=== PATIENT | male | born 1940 | race Caucasian/White ===

== ENCOUNTER 2020-03-30 09:00 | Inpatient (IN) | payer MEDICARE, OTHER ==
--- NOTE | 2020-03-30 09:53 | ED ---
General Adult HPI - General Chief complaint: Recheck/Abnormal Lab/Rx Stated complaint: positive covid Time Seen by Provider: 03/30/20 09:00 Source: patient, EMS, RN notes reviewed, old records reviewed Mode of arrival: EMS Limitations: no limitations - History of Present Illness Initial comments: This is an 80-year-old male who presents emergency because he tested positive for COVID. Patient denies any symptoms. EMS also stated that he had no symptoms. Patient denies any headache patient denies numbness or weakness per patient denies chest pain difficulty breathing shortness of breath. Patient denies any abdominal pain patient denies nausea vomiting diarrhea. Patient denies any rashes or lesions. - Related Data Home Medications Medication Instructions Recorded Confirmed Furosemide [Lasix] 40 mg PO DAILY@0700 11/18/13 03/30/20 INSULIN LISPRO (humaLOG) [humaLOG] 8 units SQ DAILY@1700 11/18/13 03/30/20 Magnesium Hydroxide [Milk of 7,200 mg PO DAILY PRN 11/18/13 03/30/20 Magnesia Concentrate] Oxybutynin Chloride [Ditropan XL] 5 mg PO DAILY@0700 11/18/13 03/30/20 lisinopriL [Zestril] 5 mg PO DAILY@0700 11/18/13 03/30/20 Acetaminophen Tab [Tylenol] 650 mg PO Q6H PRN 03/30/20 03/30/20 Apixaban [Eliquis] 2.5 mg PO BID@0700,1700 03/30/20 03/30/20 Docusate [Colace] 100 mg PO DAILY@0700 03/30/20 03/30/20 Fenofibrate [Lofibra] 54 mg PO DAILY@0700 03/30/20 03/30/20 Insulin Glargine,Hum.rec.anlog 30 unit SQ BID@0700,209903/30/20 03/30/20 [Basaglar Kwikpen U-100] Levothyroxine Sodium [Synthroid] 75 mcg PO HS@209903/30/20 03/30/20 Omeprazole [PriLOSEC] 20 mg PO HS@209903/30/20 03/30/20 Potassium Chloride ER [K-Dur 10] 10 meq PO DAILY@0700 03/30/20 03/30/20 Allergies Allergy/AdvReac Type Severity Reaction Status Date / Time No Known Allergies Allergy Verified 03/30/20 09:08 Review of Systems ROS Statement: Those systems with pertinent positive or pertinent negative responses have been documented in the HPI. ROS Other: All systems not noted in ROS Statement are negative. Past Medical History Past Medical History: Cancer, CVA/TIA, Diabetes Mellitus, Deep Vein Thrombosis (DVT), Hyperlipidemia, Myocardial Infarction (GA), Pulmonary Embolus (PE), Skin Disorder, Thyroid Disorder Additional Past Medical History / Comment(s): basal cell carcinoma right arm, left hand, left ear, weakness, anemia, tachycardia, degenerative joint disease, arthritis Last Myocardial Infarction Date:: History of Any Multi-Drug Resistant Organisms: None Reported Additional Past Surgical History / Comment(s): cancer removal from hand Past Anesthesia/Blood Transfusion Reactions: No Reported Reaction Past Psychological History: No Psychological Hx Reported Smoking Status: Never smoker Past Alcohol Use History: None Reported Past Drug Use History: None Reported General Exam - General Exam Comments Initial Comments: GENERAL: Patient is well-developed and well-nourished. Patient is nontoxic and well- hydrated and is in no acute distress. ENT: Neck is soft and supple. No significant lymphadenopathy is noted. Oropharynx is clear. Moist mucous membranes. Neck has full range of motion without eliciting any pain. EYES: The sclera were anicteric and conjunctiva were pink and moist. Extraocular movements were intact and pupils were equal round and reactive to light. Eyelids were unremarkable. PULMONARY: Unlabored respirations. Good breath sounds bilaterally. No audible rales rhonchi or wheezing was noted. CARDIOVASCULAR: There is a regular rate and rhythm without any murmurs gallops or rubs. ABDOMEN: Soft and nontender with normal bowel sounds. SKIN: Skin is clear with no lesions or rashes and otherwise unremarkable. NEUROLOGIC: Patient is alert and oriented 2. Cranial nerves II through XII are grossly intact. Motor and sensory are also intact. Normal speech, volume and content. Symmetrical smile. MUSCULOSKELETAL: Normal extremities with adequate strength and full range of motion. No lower extremity swelling or edema. No calf tenderness. LYMPHATICS: No significant lymphadenopathy is noted PSYCHIATRIC: Normal psychiatric evaluation. Limitations: no limitations Course Vital Signs 03/30/20 03/30/20 03/30/20 09:02 10:30 11:00 Temperature 98.3 F 98.2 F 98.0 F Pulse Rate 88 80 84 Respiratory 18 18 18 Rate Blood Pressure 101/64 104/66 101/64 O2 Sat by Pulse 97 98 97 Oximetry 03/30/20 13:00 Temperature 98.1 F Pulse Rate 78 Respiratory 18 Rate Blood Pressure 118/66 O2 Sat by Pulse 97 Oximetry Medical Decision Making - Medical Decision Making chest x-ray shows no acute abnormality. Patient remained asymptomatic throughout his ED stay After the patient had been discharged for approximately 5 hours it was determi anjali that the patient needed to stay because he had no place to go because of his COVID positive slight admitted the patient after I spoke with Dr. Womack who accepted the patient. Disposition Clinical Impression: COVID-19 Disposition: ADMITTED IP TO THIS HOSP Condition: Good Additional Instructions: Patient should be quarantined until he is cleared by a physician. Is patient prescribed a controlled substance at d/c from ED?: No Referrals: Ben Melara MD [Primary Care Provider] - 1-2 days Time of Disposition: 10:25
--- NOTE | 2020-03-30 09:57 | XR ---
EXAMINATION TYPE: XR chest 1V portable DATE OF EXAM: 03/30/2020 COMPARISON: Chest x-ray 11/18/2013 HISTORY: Shortness of breath, code positive TECHNIQUE: Single frontal view of the chest is obtained. FINDINGS: Patient is rotated. Patchy basilar density is present. Some lucency beneath the heart may be related to bowel similar to prior exam. There is no evident pneumothorax or pleural effusion. Lung volumes are low. Heart size is stable. The aorta is dense and somewhat prominent. IMPRESSION: Expiratory rotated exam. Probable basilar atelectasis, correlate to exclude pneumonia. F indings of lucency beneath the heart are indeterminate as described. Difficult to exclude aortic aneu rysm.
[2020-03-30] MEDS ORDERED: SODIUM CHLORIDE 0.9% 1,000 ML IV ONE (15:07)
[2020-03-30] MEDS ORDERED: MAGNESIUM HYDROXIDE 2,400 MG/10 ML CUP PO PRN (17:39)
[2020-03-30] MEDS ORDERED: ACETAMINOPHEN TAB 325 MG TAB PO PRN (17:39)
--- NOTE | 2020-03-30 18:09 | CT ---
EXAMINATION TYPE: CT chest wo con DATE OF EXAM: 03/30/2020 COMPARISON: Same-day radiograph. HISTORY: Cough. CT DLP: 565 mGycm. Automated Exposure Control for Dose Reduction was Utilized. TECHNIQUE: CT scan of the thorax is performed without IV contrast. FINDINGS: LUNGS: There are [id number] patchy and streaky opacities in the bilateral lower lobes and ling tammy. There is trace right pleural effusion. There is no suspicious nodule or pneumothorax. MEDIASTINUM: Lack of IV contrast is noted to limit evaluation for mediastinal and especially hilar ad enopathy. There are no definitive greater than 1 cm hilar or mediastinal lymph nodes. No cardiomega ly or pericardial effusion is seen. Moderate thoracic aorta and coronary atherosclerotic disease. OTHER: No additional significant abnormality is seen. Cholelithiasis noted. IMPRESSION: Small to moderate bibasilar opacities may represent developing infiltrates in the appropr iate clinical setting.
[2020-03-30 19:18] LABS: Basophils # (A) 0.2 k/uL (0-0.2); Basophils % (A) 3 %; Eosinophils # (A) 0.1 k/uL (0-0.7); Eosinophils % (A) 1 %; HGB 15.1 gm/dL (13.0-17.5); Lymphocytes # (A) 2.2 k/uL (1.0-4.8); Lymphocytes % (A) 30 %; MCH 28.9 pg (25.0-35.0); MCHC 32.2 g/dL (31.0-37.0); MCV 89.9 fL (80.0-100.0); Mean Platelet Volume 7.8; Monocytes # (A) 0.5 k/uL (0-1.0); Monocytes % (A) 7 %; Neutrophils # (A) 4.2 k/uL (1.3-7.7); Neutrophils % (A) 58 %; Platelet Count 178 k/uL (150-450); RBC 5.23 m/uL (4.30-5.90); RDW 14.4 % (11.5-15.5); WBC 7.3 k/uL (3.8-10.6)
[2020-03-30 19:35] LABS: ALT 41 U/L (4-49); AST 70 U/L (17-59); African American GFR (CKD) 39 (>60 ml/min/1.73 sqM); Albumin 3.5 g/dL (3.5-5.0); Alkaline Phosphatase 62 U/L (38-126); Anion Gap 11 mmol/L; Blood Urea Nitrogen 43 mg/dL (9-20); C Reactive Protein 61.3 mg/L (<10.0); Calcium 9.1 mg/dL (8.4-10.2); Carbon Dioxide 23 mmol/L (22-30); Chloride 102 mmol/L (98-107); Globulin 3.5 g/dL; Glucose 199 mg/dL (74-99); LDH 637 U/L (313-618); Non-African American GFR(CKD) 33 (>60 ml/min/1.73 sqM); Sodium 136 mmol/L (137-145); Total Bilirubin 0.7 mg/dL (0.2-1.3)
[2020-03-30] MEDS ORDERED: ALPRAZolam 0.25 MG TAB PO PRN (19:59)
[2020-03-30] MEDS ORDERED: HYDROcodone/APAP 5-325MG 1 EACH TAB PO PRN (19:59)
[2020-03-30 20:12] LABS: Potassium 4.5 mmol/L (3.5-5.1)
[2020-03-30 20:18] LABS: Erythrocyte Sedimentation Rate 28 mm/hr (0-15)
[2020-03-30 20:44] LABS: Glucose,Whole Blood 278 mg/dL (75-99)
[2020-03-30] MEDS: LEVOTHYROXINE 75 MCG TAB PO SCH (21:39)
[2020-03-30] MEDS: dexAMETHasone 2 MG TAB PO SCH (21:39)
[2020-03-30] MEDS: PANTOPRAZOLE 40 MG TABLET PO SCH (21:39)
[2020-03-30] MEDS: INSULIN ASPART (NovoLOG) 100 UNIT/ML VIAL SQ SCH (21:40)
[2020-03-30] MEDS: ZINC SULFATE 220 MG CAP PO SCH (21:40)
[2020-03-30] MEDS: INSULIN DETEMIR (LEVEMIR) 100 UNIT/ML SYR SQ SCH (21:40)
--- NOTE | 2020-03-30 22:15 | HP ---
HISTORY AND PHYSICAL DATE OF SERVICE: 03/30/2020 CHIEF COMPLAINTS: COVID positive. HISTORY OF PRESENT ILLNESS: This 80-year-old gentleman, a resident of [facility], being followed by Dr. Ben Melara in the outpatient setting, has history of CVA, TIA, history of diabetes mellitus, DVT, hyperlipidemia, history of myocardial infarction, history of pulmonary embolism, history of hypothyroidism, history of basal cell carcinoma on the right, is barely communicative. The patient was found to be COVID positive in [facility], found among several patients. The patient does not have any cough or chest pain, palpitations. Denies any major symptoms. The patient came to [facility]. Chest x-ray and CT scan showed possible bibasilar infiltrates. The patient is admitted for further evaluation and treatment. There is no history of any fever, rigors. No history of trauma. PAST MEDICAL HISTORY: Diabetes mellitus, CVA, TIA, DVT, hyperlipidemia, myocardial infarction, history of pulmonary embolism. HOME MEDICATIONS: Zestril, K-Dur 10, Ditropan, Prilosec, Milk of Magnesia, Synthroid, Basaglar Kwikpen, Humalog, Lasix, Lofibra, Colace, Eliquis, Tylenol. ALLERGIES: NONE. FAMILY HISTORY: No history of heart disease or strokes in the family. Social history and review of systems could not be taken at length because of the patient's baseline mental status. PHYSICAL EXAMINATION: Pulse is 70, blood pressure 100/60, respiration 18, temperature 98.2, pulse ox 96% on room air. HEENT: Conjunctivae normal. NECK: No jugular venous distention. CARDIOVASCULAR SYSTEM: S1, S2 muffled. RESPIRATORY SYSTEM: Breath sounds diminished at the bases. A few scattered rhonchi. ABDOMEN: Soft, non-tender. LEGS: No edema. No swelling. NERVOUS SYSTEM: Diffusely weak. LYMPHATICS: No lymph node palpable in neck, axillae or groin. SKIN: No ulcer, rash, bleeding. JOINTS: No active deforming arthropathy. LABS: CBC within normal limits. ASSESSMENT: 1. Acute COVID-19 infection with possible bibasilar pneumonia with viral pneumonia. 2. Possible aspiration pneumonia. 3. History of cerebrovascular accident, transient ischemic attack. 4. Diabetes mellitus, type 2. 5. History of deep vein thrombosis. 6. Hyperlipidemia. 7. History of myocardial infarction. 8. History of pulmonary embolism. 9. History of hypothyroidism. 10.History of basal cell carcinoma of the right arm. 11.History of anemia. 12.Obesity with body mass index of 31. RECOMMENDATIONS AND DISCUSSION: In this 80-year-old gentleman who presented with multiple complex medical issues, we will monitor the patient closely, continue the current medications, continue with symptomatic treatment. Will initiate the inflammatory markers such as D-dimer, sedimentation rate, LDH and CRP. Otherwise, we will also initiate dexamethasone and zinc with broad-spectrum IV antibiotics. The patient is already on anticoagulation. I would also recommend pulmonary consultation with Dr. Lyn to evaluate the pneumonia as well as to decide on the application of remdesivir. Overall prognosis is guarded because of multiple complex medical issues. Further recommendations to follow. A copy of this dictation is being forwarded to Dr. Melara, who is the primary physician. MMRIAL / RADHAN: [id number] /
[2020-03-31] MEDS: PIPERACILLIN-TAZOBACTAM 3.375 GM in SODIUM CHLORIDE 0.9% 100 ML IVPB SCH ×2 (00:05→10:01)
[2020-03-31 06:55] LABS: Basophils % (A) 0 %; Eosinophils % (A) 0 %; HCT 41.5 % (39.0-53.0); HGB 13.5 gm/dL (13.0-17.5); Lymphocytes # (A) 1.6 k/uL (1.0-4.8); Lymphocytes % (A) 25 %; MCH 28.9 pg (25.0-35.0); MCHC 32.5 g/dL (31.0-37.0); MCV 88.8 fL (80.0-100.0); Mean Platelet Volume 7.7; Monocytes # (A) 0.7 k/uL (0-1.0); Monocytes % (A) 11 %; Neutrophils % (A) 63 %; Platelet Count 179 k/uL (150-450); RBC 4.68 m/uL (4.30-5.90); RDW 14.4 % (11.5-15.5); WBC 6.4 k/uL (3.8-10.6)
[2020-03-31 06:59] LABS: Glucose,Whole Blood 257 mg/dL (75-99)
[2020-03-31] MEDS: dexAMETHasone 2 MG TAB PO SCH (08:40)
[2020-03-31] MEDS: ZINC SULFATE 220 MG CAP PO SCH (08:41)
[2020-03-31] MEDS: POTASSIUM CHLORIDE ER 10 MEQ TAB.ER.PRT PO SCH (08:41)
[2020-03-31] MEDS: INSULIN DETEMIR (LEVEMIR) 100 UNIT/ML SYR SQ SCH ×2 (08:41→21:16)
[2020-03-31] MEDS: lisinopriL 5 MG TAB PO SCH (08:41)
[2020-03-31] MEDS: DOCUSATE 100 MG CAP PO SCH (08:41)
[2020-03-31] MEDS: FENOFIBRATE 54 MG TAB PO SCH (08:41)
[2020-03-31] MEDS: APIXABAN 2.5 MG TABLET PO SCH ×2 (08:41→17:09)
[2020-03-31] MEDS: OXYBUTYNIN XL 5 MG TAB.ER.24 PO SCH (08:41)
[2020-03-31] MEDS: FUROSEMIDE 40 MG TAB PO SCH (08:41)
[2020-03-31] MEDS: INSULIN ASPART (NovoLOG) 100 UNIT/ML VIAL SQ SCH ×4 (08:42→21:16)
[2020-03-31 09:17] LABS: African American GFR (CKD) 40.3 (60.0-200.0); Anion Gap 10.2 mmol/L (4.00-12.00); BUN/Creat Ratio 23.89 Ratio (12.00-20.00); Calcium 8.5 mg/dL (8.7-10.3); Carbon Dioxide 24.8 mmol/L (21.6-31.8); Non-African American GFR(CKD) 34.8 (60.0-200.0)
[2020-03-31 11:27] LABS: Glucose,Whole Blood 352 mg/dL (75-99)
--- NOTE | 2020-03-31 13:30 | CONS ---
CONSULTATION DATE OF SERVICE: 03/31/2020. HISTORY: This is an 80-year-old male who apparently was transferred from [facility] to [facility], and was transferred down to our ER where he was evaluated. The patient apparently tested positive for COVID. He apparently had no symptoms whatsoever. He was on room air. He is not complaining of shortness of breath, cough, or any other pulmonary complaints. He was not febrile. I am not sure exactly why the patient was sent here. Anyway, the patient is currently resting comfortably in the hospital in room 464. He was admitted to Dr. Womack's service. The patient is the patient has somewhat of a speech impediment because of a previous CVA, is not able to give much history. Most of the history is obtained from the nurse and also from the ER marianela. Again, the patient has been very stable since he has been here. Apparently he has not required oxygen therapy, has not been febrile. No respiratory distress or any other complaints consistent with significant COVID 19 pneumonitis. HOME MEDICATIONS: Include Lasix, insulin, Mag, milk of magnesia, Ditropan, lisinopril Tylenol, Eliquis, Colace, low fiber, insulin levothyroxine, omeprazole and K-Dur. ALLERGIES: Denied. PRIOR MEDICAL HISTORY: Includes skin cancer, CVA, diabetes, DVT, hyperlipidemia, myocardial infarction, pulmonary embolism, and hypothyroidism. He does have left upper extremity weakness from his previous CVA. Other medical issues include anemia, degenerative joint disease and arthritis. SURGICAL HISTORY: Includes removal of cancer from his hand. SOCIAL HISTORY: Social history is significant in that he is a lifelong nonsmoker. Denies any alcohol or illicit drug use. FAMILY HISTORY: Noncontributory. REVIEW OF SYSTEMS: CONSTITUTION: Negative. HEENT: Negative. CARDIOVASCULAR: Negative. PULMONARY: Negative. GI: Negative. : Negative. RHEUMATOLOGIC: Negative. IMMUNOLOGIC: Negative. ENDOCRINOLOGIC: Negative. DERMATOLOGIC: Negative. PHYSICAL EXAMINATION: VITAL SIGNS: Current vital signs are reviewed, temperature is 97.6 heart rate 77, respiratory rate 18, blood pressure 115/73, mean is 87 room-air saturation between 95 to 97 percent according to the nurse. HEENT: Examination is grossly unremarkable. No supplemental oxygen. NECK: Supple full range of motion. CARDIOVASCULAR: Examination reveals regular rhythm rate. Heart rate 77. LUNGS: Lung sounds are clear. Heart sounds are distant. ABDOMEN: Soft bowel sounds are heard. No masses or tenderness. EXTREMITIES: Intact. No significant cyanosis, clubbing, or edema. SKIN: Without rash. NEUROLOGIC: Examination is difficult to assess. There is some residual weakness noted in his upper extremities. LABS: Reviewed. White count 6.4, hemoglobin 13.5, hematocrit 41.5, platelet count 179,000. D-dimer 0.45. Sodium, potassium chloride, CO2 all normal. BUN and creatinine 43 and 1.88. Anion gap 10.2, calcium 8.5, AST 70, LDH 637. C-reactive protein 61.3. Procalcitonin 0.24. Microbiology is negative. Chest x-ray shows some basilar atelectasis and/or infiltrate. Chest CT shows minimal bibasilar pleural opacities which likely represent atelectasis and not pneumonia. MEDICATIONS: Current medications are reviewed. The patient is on Tylenol, Xanax, Eliquis, Decadron, Colace, low-fiber, Lasix Fitzwilliam, insulin, levothyroxine, lisinopril, magnesium hydroxide, oxybutynin, Protonix Zosyn, potassium chloride, zinc, and saline IV. ASSESSMENT: 1. Positive test for COVID 19, without evidence of significant pulmonary issues or any symptoms for that matter. 2. Bibasilar minimal infiltrates, likely representing atelectasis rather than pneumonia. 3. History of skin cancer. 4. History of cerebrovascular accident with residual weakness. 5. Diabetes mellitus. 6. History of DVT/PE. 7. History of hyperlipidemia. 8. Myocardial infarction. 9. History of hypothyroidism. 10.History of anemia. 11.History of tachycardia. 12.Degenerative joint disease/arthritis. PLAN: I am going to switch the patient from Zosyn to an oral antibiotic. I do not believe the patient should be in the hospital. The patient should not been accepted here in my opinion. He has no complaints whatsoever and is absolutely stable. No additional recommendations are made. Prognosis is thought to be good. MMODL / IJN: [id number] / MTDD
--- NOTE | 2020-03-31 15:34 | P.DS ---
Providers Date of admission: 03/31/20 11:59 Attending physician: Jose Ramon Womack Consults: 03/31/20 10:45 Consult Physician Routine Consulting Provider: Piter Lyn Consult Reason/Comments: covid positive at ecf Do you want consulting provider notified?: Already Contacted Primary care physician: Ben Melara Hospital Course: Final diagnosis Acute cvid 19 infection with a possible bibasilar pneumonia with a viral pneumonia History of CVA TIA Diabetes was type II History of DVT Hyperlipidemia History of myocardial infarction History of pulmonary embolism History of hypothyroidism History of for basal cell carcinoma right arm History of anemia Obesity body mass in this of 31 Discharge disposition The patient is being discharged in a stable condition with a guarded prognosis. Total time taken is some 35 minutes History of present illness This 80-year-old gentleman who was residing in [facility] was admitted with a diagnosis of covid 19 pneumonia the patient had minimal infiltrates patient was given antibiotics. Dr. Lyn saw the patient and cleared the patient for discharge so the patient be discharged in a stable condition with an extremely guarded prognosis because of the covid 19 diagnosis in this elderly individual with the multiple comorbidities. hop worker and rn field case manager team recommended an ECF who will accept the patient please refer to their records for further details. On exam vitals are stable cardio S1 and S2 normal respirator system few scattered rhonchi. Nervous system no focal deficit Please refer to the medication requisition sheet for list of medications. Patient Condition at Discharge: Good Plan - Discharge Summary Discharge Rx Participant: No New Discharge Prescriptions: New Amoxic-Pot Clav 875-125Mg [Augmentin 875-125] 1 each PO Q12HR #10 tab dexAMETHasone [Hexadrol] 6 mg PO DAILY #8 tab Zinc Sulfate [Orazinc] 220 mg PO DAILY cap Continue lisinopriL [Zestril] 5 mg PO DAILY@0700 Furosemide [Lasix] 40 mg PO DAILY@0700 Oxybutynin Chloride [Ditropan XL] 5 mg PO DAILY@0700 INSULIN LISPRO (humaLOG) [humaLOG] 8 units SQ DAILY@1700 Magnesium Hydroxide [Milk of Magnesia Concentrate] 7,200 mg PO DAILY PRN PRN Reason: Constipation Acetaminophen Tab [Tylenol] 650 mg PO Q6H PRN PRN Reason: Pain Or Fever > 100.5 Insulin Glargine,Hum.rec.anlog [Alon Brasher U-100] 30 unit SQ BID@0700,2100 Apixaban [Eliquis] 2.5 mg PO BID@0700,1700 Potassium Chloride ER [K-Dur 10] 10 meq PO DAILY@0700 Levothyroxine Sodium [Synthroid] 75 mcg PO HS@2100 Fenofibrate [Lofibra] 54 mg PO DAILY@0700 Docusate [Colace] 100 mg PO DAILY@0700 Omeprazole [PriLOSEC] 20 mg PO HS@2100 Discharge Medication List Furosemide [Lasix] 40 mg PO DAILY@0711/18/13 [History] INSULIN LISPRO (humaLOG) [humaLOG] 8 units SQ DAILY@1700 11/18/13 [History] Magnesium Hydroxide [Milk of Magnesia Concentrate] 7,200 mg PO DAILY PRN 11/18/13 [History] Oxybutynin Chloride [Ditropan XL] 5 mg PO DAILY@0711/18/13 [History] lisinopriL [Zestril] 5 mg PO DAILY@0711/18/13 [History] Acetaminophen Tab [Tylenol] 650 mg PO Q6H PRN 03/30/20 [History] Apixaban [Eliquis] 2.5 mg PO BID@0700,1700 03/30/20 [History] Docusate [Colace] 100 mg PO DAILY@0703/30/20 [History] Fenofibrate [Lofibra] 54 mg PO DAILY@0703/30/20 [History] Insulin Glargine,Hum.rec.anlog [Basaglar Kwikpen U-100] 30 unit SQ BID@0700,2100 03/30/20 [History] Levothyroxine Sodium [Synthroid] 75 mcg PO HS@209903/30/20 [History] Omeprazole [PriLOSEC] 20 mg PO HS@209903/30/20 [History] Potassium Chloride ER [K-Dur 10] 10 meq PO DAILY@0700 03/30/20 [History] Amoxic-Pot Clav 875-125Mg [Augmentin 875-125] 1 each PO Q12HR #10 tab 03/31/20 [Rx] Zinc Sulfate [Orazinc] 220 mg PO DAILY cap 03/31/20 [Rx] dexAMETHasone [Hexadrol] 6 mg PO DAILY #8 tab 03/31/20 [Rx] Follow up Appointment(s)/Referral(s): Ben Melara MD [Primary Care Provider] - 1-2 days Activity/Diet/Wound Care/Special Instructions: Patient should be quarantined until he is cleared by a physician Diet cardiac activity limited to follow-up f ollow-up with the primary physician in 1-2 weeks or when necessary.
[2020-03-31 16:41] LABS: Glucose,Whole Blood 340 mg/dL (75-99)
[2020-03-31] MEDS ORDERED: INSULIN ASPART (NovoLOG) 100 UNIT/ML VIAL SQ SCH (17:00)
--- NOTE | 2020-03-31 19:06 | PN ---
PROGRESS NOTE DATE OF SERVICE: 03/31/2020 This 80-year-old gentleman was admitted with Covid-19 infection, referred from [facility] at this time. No chest pain. No palpitations. No fever. REVIEW OF SYSTEMS: CARDIOVASCULAR SYSTEM: No angina or palpitations. RESPIRATIONS: As mentioned earlier. GI as mentioned earlier. : No dysuria. NERVOUS SYSTEM: No numbness or weakness. CURRENT MEDICATIONS: Reviewed and include: 1. Tylenol. 2. [place]. 3. Xanax. 4. Augmentin. 5. Eliquis. 6. Hexadrol. 7. Colace. 8. Lofibra. 9. Doses reviewed. PHYSICAL EXAMINATION: Alert and oriented x1. Pulse 76, blood pressure 119/97, respirations 19, temperature 97.2, pulse ox 98% on room air. HEENT: Conjunctivae normal. NECK: No JVD. CARDIOVASCULAR: S1, S2 muffled. RESPIRATORY: Breath sounds diminished in the bases. Few scattered rhonchi. ABDOMEN: Soft, nontender. LEGS are no edema. No swelling. NERVOUS SYSTEM: No focal deficits. LABS: At this time show CBC within normal limits and creatinine is 1.8. Glucose 282 and 340. ASSESSMENT: 1. Acute COVID-19 infection with possible bibasilar pneumonia with viral pneumonia. 2. History of cerebrovascular accident, transient ischemic attack. 3. Diabetes mellitus type 2. 4. History of deep vein thrombosis. 5. Hyperlipidemia. 6. History of myocardial infarction. 7. History of pulmonary embolism. 8. History of hypothyroidism. 9. History of basal cell carcinoma of the right arm. 10.History of anemia. 11.Obesity with body mass of 31. RECOMMENDATIONS AND DISCUSSION: Recommend to continue current medications, management and symptomatic treatment. Otherwise at this time continue with empiric antibiotics and dexamethasone. I would increase the dose of Levemir to 40 subcu b.i.d. and continue to monitor. Prognosis guarded. Further recommendations to follow. Rica-Loli kurtz and silvanohTress. MMRIAL / IJN: [id number] /
[2020-03-31 21:03] LABS: Glucose,Whole Blood 351 mg/dL (75-99)
[2020-03-31] MEDS: LEVOTHYROXINE 75 MCG TAB PO SCH (21:16)
[2020-03-31] MEDS: AMOXIC-POT CLAV 875-125MG 1 EACH TAB PO SCH (21:16)
[2020-03-31] MEDS: PANTOPRAZOLE 40 MG TABLET PO SCH (21:16)
[2020-04-01 02:08] VITALS: RESP 18
[2020-04-01 05:59] LABS: Basophils # (A) 0.1 k/uL (0-0.2); Basophils % (A) 1 %; Eosinophils % (A) 0 %; HCT 43.3 % (39.0-53.0); HGB 13.9 gm/dL (13.0-17.5); Lymphocytes # (A) 2.6 k/uL (1.0-4.8); Lymphocytes % (A) 27 %; MCH 28.5 pg (25.0-35.0); Monocytes # (A) 0.7 k/uL (0-1.0); Monocytes % (A) 7 %; Neutrophils % (A) 63 %; Platelet Count 195 k/uL (150-450); RBC 4.86 m/uL (4.30-5.90); RDW 14.2 % (11.5-15.5); WBC 9.5 k/uL (3.8-10.6)
[2020-04-01 07:12] LABS: Glucose,Whole Blood 195 mg/dL (75-99)
--- NOTE | 2020-04-01 07:38 | XR ---
EXAMINATION TYPE: XR chest 1V portable DATE OF EXAM: 04/01/2020 CLINICAL HISTORY: Difficulty breathing progress study. COVID positive. TECHNIQUE: Single AP portable upright view of the chest is obtained. COMPARISON: Chest x-ray and CT chest from 2 days earlier. FINDINGS: Patchy bibasilar atelectasis and/or infiltrate. Upper lungs remain clear without pneumotho rax. No pleural effusion seen bilaterally. Cardiac silhouette size stable and within normal limits. P atient rotated to right on current study. Osseous structures are intact. IMPRESSION: Patchy bibasilar atelectasis and/or less likely acute infiltrate. No new infiltrates seen .
[2020-04-01] MEDS: FUROSEMIDE 40 MG TAB PO SCH (08:06)
[2020-04-01] MEDS: ZINC SULFATE 220 MG CAP PO SCH (08:06)
[2020-04-01] MEDS: AMOXIC-POT CLAV 875-125MG 1 EACH TAB PO SCH (08:07)
[2020-04-01] MEDS: FENOFIBRATE 54 MG TAB PO SCH (08:07)
[2020-04-01] MEDS: lisinopriL 5 MG TAB PO SCH (08:07)
[2020-04-01] MEDS: DOCUSATE 100 MG CAP PO SCH (08:07)
[2020-04-01] MEDS: OXYBUTYNIN XL 5 MG TAB.ER.24 PO SCH (08:07)
[2020-04-01] MEDS: POTASSIUM CHLORIDE ER 10 MEQ TAB.ER.PRT PO SCH (08:07)
[2020-04-01] MEDS: APIXABAN 2.5 MG TABLET PO SCH (08:08)
[2020-04-01] MEDS: INSULIN DETEMIR (LEVEMIR) 100 UNIT/ML SYR SQ SCH (08:08)
[2020-04-01] MEDS: INSULIN ASPART (NovoLOG) 100 UNIT/ML VIAL SQ SCH ×2 (08:08→12:20)
[2020-04-01 08:21] VITALS: BP 103/64; PULSE 64; TEMP 97.9
[2020-04-01] MEDS ORDERED: dexAMETHasone 4 MG TAB PO SCH (09:00)
[2020-04-01 09:27] LABS: African American GFR (CKD) 31.6 (60.0-200.0); Anion Gap 8.7 mmol/L (4.00-12.00); BUN/Creat Ratio 22.73 Ratio (12.00-20.00); Calcium 9.2 mg/dL (8.7-10.3); Carbon Dioxide 27.3 mmol/L (21.6-31.8); Non-African American GFR(CKD) 27.3 (60.0-200.0); Potassium 4.6 mmol/L (3.5-5.5)
--- NOTE | 2020-04-01 10:48 | P.PN ---
Subjective Progress Note Date: 04/01/20 Principal diagnosis: CoVID 19 positivity This is a 80-year-old gentleman who is transferred from [facility] after being found to have Covid 19. He was initially transferred to [facility] and subsequently transferred here. The patient had no symptoms whatsoever. He denied any shortness of breath, cough or congestion. He is maintaining O2 saturations in the 90s on room air. He's been afebrile. He does have a history of previous CVA, diabetes mellitus, DVT, hypertension, hyperlipidemia, hypothyroidism, myocardial infarction, pulmonary embolism. He is seen again today in follow-up on the regular medical floor. Follow-up chest x-ray reveals some bibasilar atelectasis. No new infiltrates noted. Continues to maintain good O2 saturations in the mid 90s on room air. Remains afebrile. White count 9.5. Hemoglobin 13.9. Sodium 140. Potassium 4.6. Creatinine 2.2. Currently on Augmentin, and dexamethasone. Anticoagulated with Eliquis. Objective - Vital Signs Vital signs: Vital Signs Temp 97.9 F 04/01/20 07:00 Pulse 64 04/01/20 07:00 Resp 18 04/01/20 07:00 BP 103/64 04/01/20 07:00 Pulse Ox 96 04/01/20 07:00 Intake & Output 03/31/20 04/01/20 04/01/20 18:59 06:59 18:59 Intake Total 540 Output Total 500 Balance 40 Intake: Oral 540 Output: Urine 500 Other: # Voids 4 # Bowel Movements 3 - Exam GENERAL EXAM: Alert, 80-year-old gentleman, on room air, slurred speech, comfortable in no apparent distress. HEAD: Normocephalic. EYES: Normal reaction of pupils, equal size. NOSE: Clear with pink turbinates. THROAT: No erythema or exudates. NECK: No masses, no JVD. CHEST: No chest wall deformity. LUNGS: Equal air entry with no crackles, wheeze, rhonchi or dullness. CVS: S1 and S2 normal with no audible murmur, regular rhythm. ABDOMEN: No hepatosplenomegaly, normal bowel sounds, no guarding or rigidity. SPINE: No scoliosis or deformity SKIN: No rashes CENTRAL NERVOUS SYSTEM: Difficult to assess slurred speech, tone is normal in all 4 extremities. EXTREMITIES: There is no peripheral edema. No clubbing, no cyanosis. Peripheral pulses are intact. - Labs CBC & Chem 7: 04/01/20 05:47 04/01/20 05:47 Labs: Abnormal Lab Results - Last 24 Hours (Table) 03/31/20 03/31/20 03/31/20 Range/Units 11:26 16:40 21:01 BUN (9.0-27.0) mg/dL Creatinine (0.6-1.5) mg/dL Est GFR (CKD-EPI)AfAm (60.0-200.0) Est GFR (CKD-EPI)NonAf (60.0-200.0) BUN/Creatinine Ratio (12.00-20.00) Ratio Glucose (70-110) mg/dL POC Glucose (mg/dL) 352 H 340 H 351 H (75-99) mg/dL 04/01/20 04/01/20 Range/Units 05:47 07:10 BUN 50.0 H (9.0-27.0) mg/dL Creatinine 2.2 H (0.6-1.5) mg/dL Est GFR (CKD-EPI)AfAm 31.6 L (60.0-200.0) Est GFR (CKD-EPI)NonAf 27.3 L (60.0-200.0) BUN/Creatinine Ratio 22.73 H (12.00-20.00) Ratio Glucose 223 H (70-110) mg/dL POC Glucose (mg/dL) 195 H (75-99) mg/dL Assessment and Plan Assessment: 1 CoVID19 positivity without any symptoms 2 Basilar atelectasis, on room air 3 History of CVA with residual weakness 4 History of skin cancer 5 Diabetes mellitus 6 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 Lyn Complete 7 days of dexamethasone Complete 7 days of Augmentin The patient is being transferred to an extended care facility in [facility] that accepts Covid positive patients I, the cosigning physician, performed a history & physical examination of the patient. Lungs sounds are clear. Maintaining good O2 saturations in the 90s on room air. I discussed the assessment and plan of care with my nurse practitioner, Kanchan Chatterjee. I attest to the above note as dictated by her.
[2020-04-01 11:21] LABS: Glucose,Whole Blood 193 mg/dL (75-99)
--- NOTE | 2020-04-01 18:44 | DS ---
DISCHARGE SUMMARY DATE OF SERVICE: 04/01/2020 HISTORY OF PRESENT ILLNESS: This 80-year-old gentleman admitted with acute Covid-19 infection with bibasilar pneumonia. The patient treated closely. Patient was seen by Dr. Lyn and cleared for patient discharged. The patient will be discharged in stable condition with guarded prognosis to an ECF in [place]. Total time taken: 35 minutes. Please refer to my previous dictation for list of diagnoses and list of medications. Arrange follow up with Dr. Ben Melara after discharge from the ECF. MMODL / IJN: [id number] /
[2020-04-01] MEDS ORDERED: AMOXIC-POT CLAV 500-125 MG 1 EACH TAB PO SCH (21:00)
== END 2020-04-01 14:27 | DRG 177 ==
LOC: EC 09:00 → 4SSUR 15:07 → OBSVTOIN 03-31 11:59
PROVIDERS: ADMIT Hospitalist; ATTEND Hospitalist
DX: U07.1 COVID-19 (principal); J12.89 Other viral pneumonia; J98.11 Atelectasis; E03.9 Hypothyroidism, unspecified; E11.9 Type 2 diabetes mellitus without complications; E66.9 Obesity, unspecified; E78.5 Hyperlipidemia, unspecified; I10 Essential (primary) hypertension; I25.2 Old myocardial infarction; I69.398 Other sequelae of cerebral infarction; M19.90 Unspecified osteoarthritis, unspecified site; Z68.31 Body mass index [BMI] 31.0-31.9, adult; Z79.01 Long term (current) use of anticoagulants; Z79.4 Long term (current) use of insulin; Z79.890 Hormone replacement therapy; Z79.899 Other long term (current) drug therapy; Z86.711 Personal history of pulmonary embolism; Z86.718 Personal history of other venous thrombosis and embolism; Z85.828 Personal history of other malignant neoplasm of skin
CPT/HCPCS: 71045; 71250; 80048; 80053; 83615; 84145; 85025; 85379; 85652; 86140; 99285